=== PATIENT | male | born 1975 | race Caucasian/White ===

== ENCOUNTER → 2021-06-07 | Day surgery (SDC) | payer OTHER ==
[~2021-06-07] MED LIST: ACETAMINOPHEN 500 MG TABLET PO ONE; DEXAMETHASONE SOD PHOS 4 MG/ML VIAL. ONE; EPINEPHrine 30 MG/30 ML VIAL NS ONE; EPINEPHrine 30 MG/30 ML VIAL ONE; GELATIN SPONGE SIZE 12-7MM SPONGE. ONE; GELATIN SPONGE SIZE 12-7MM SPONGE. TP ONE; GLYCOPYRROLATE 1 MG/5 ML VIAL. ONE; IPRATRPIUM/ALBUTEROL 0.5/2.5MG 3 ML NEBU. NEB PRN; IV RINGERS SOLUTION,LACTATED 1,000 ML IV SCH; KETOROLAC 30 MG/ML VIAL. ONE; LIDOCAINE 1% PF 30 ML VIAL. INJ ONE; LIDOCAINE 1%/EPI 1:100,000 20 ML VIAL. ONE; LIDOCAINE 2% PF 5 ML VIAL. ONE; MIDAZOLAM HCL PF 2 MG/2 ML VIAL. IV ONE; MIDAZOLAM HCL PF 2 MG/2 ML VIAL. ONE; NEOMY/BACITR/POLYMYXIN OINT PACKET. TP ONE; NEOSTIGMINE 10 MG/10 ML VIAL. ONE; ONDANSETRON PF 4 MG/2 ML VIAL. IV PRN; ONDANSETRON PF 4 MG/2 ML VIAL. ONE; OXYMETAZOLINE 0.05% NASAL SPRAY 30ML BOTTLE. NS ONE; PROPOFOL 10,000 MCG/ML (20ML) VIAL IV ONE; ROCURONIUM 50 MG/5 ML VIAL. ONE; SCOPOLAMINE 1.5MG PATCH. TD ONE; SEVOFLURANE 61 TO 120 MINUTES. IH ONE; ceFAZolin SODIUM 2 GM in IV DEXTROSE 5% 50 ML IV ONE
[2021-06-07 11:06] VITALS: BP 140/90
--- NOTE | 2021-06-07 23:51 | OP ---
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 POSTOPERATIVE DIAGNOSES: Nasal septal deviation with inferior nasal turbinate hypertrophy and include a nasal polyp in the right middle meatus. PROCEDURE PERFORMED: A nasal septoplasty with radiofrequency reduction of the right inferior turbinate and an excision of a nasal polyp. INDICATIONS FOR PROCEDURE: Nasal obstruction. ESTIMATED BLOOD LOSS: Less than 10 mL. DESCRIPTION OF PROCEDURE: The patient was brought to the operating room and placed on the operating room table in a supine position and given a general anesthetic after his airway was secured in position. The table was rotated 90 degrees. His nose had been preoperatively decongested with Afrin nasal spray and it was examined and the septal deviation clearly observed and it had occurred into the left side of the nose occupying at least 70-80% of the nasal obstruction with crowding of the inferior left nasal turbinate. The right inferior turbinate responded to decongestion. Posteriorly on the right side, the septum concavity was noted with some displacement of the foot of the cartilaginous septum into the inferior airway column on the right. In the left side, there was marked deviation and irregularity of the septum. The inferior turbinate was noted to be crowded and a posterior spur formation identified at the cartilaginous bony junction. The septum was infiltrated with 1% lidocaine with epinephrine on both right and left side and then the inferior turbinate in the right side was infiltrated with saline. Some saline was placed into the left inferior turbinate to appreciate the amount of expansion that might have been existing prior to the application of the Afrin and it was estimated that this turbinate also would enlarge sufficiently enough to cause inferior airway obstruction. The turbinates were treated with radiofrequency energy using a Coblation unit. In the right side, the expanded turbinate mucosa with saline was entered with a radiofrequency wand and radiofrequency energy was applied, observing contraction of the soft tissue. A small application was applied to the anterior tip in the left side into the same fashion. A curvilinear incision was then made along the mucocutaneous border in the left side of the nose and dissection carried down between the mucoperichondrium on the left side for the full length of the deviated portion to the mid section of the bony cartilage. Mobilization of the septum was then accomplished by using a caudal elevator to separate the deformed septum from the premaxillary crest and irregular cartilage and bony tissue was then removed. Mobility of the septum was achieved. Position to the midline was not complete due to the twisted portion of the septum. Crossover incision was made and scoring of the cartilaginous septum was accomplished, which gave the septum more mobility and more midline position. The twisted portion of the premaxillary crest was then manicured using a small osteotome. Septum now was in midline position. Fragments of the posterior cartilaginous and anterior bony septum was removed with Blakesley forceps. With a midline position achieved, the septum was then sutured using a quilting type suture pattern to attach it to the elevated mucous membrane, a full length of the dissection. At the conclusion, careful examination of the nose on both sides unexpectedly revealed a medium sized polyp within the posterior middle meatus of the nasal passage. This was examined and found to be a small stalk attaching it to the inferior meatal wall, grasping it with a Blakesley forceps. It was removed and submitted for pathology. No significant bleeding resulted from that removal. The anterior of the nose was examined again and suctioned, removing all bloody remains and certain all tissue fragments that were remaining. It was then packed with Gelfoam. The nasopharynx had been suctioned and suturing had been completed closing the wound entry site. The patient was then recovered from his anesthesia and he was taken to the recovery room in stable condition. RAMSEY DR: Delvin TID: [id number]
--- NOTE | 2021-06-10 17:08 | PATHOLOGY ---
[facility] Accession Number: [id number] . 01 Material submitted: . nasal cavity - RIGHT POSTERIOR NASAL POLYP. Modifiers: right, posterior . 01 Clinical history: . NASAL INSUFFICIENCY SEPTOPLASTY,TURBINATES BILATERAL . 02 Diagnosis: Segments of respiratory mucosa and calcified bone, right posterior nasal polyp: - Inflammatory nasal polyp showing edema, chronic inflammation, and increased eosinophils. (JPM:pam; 06/10/2021) S 06/10/2021 1410 Local . 02 Electronically signed: . Mckinley West MD, Pathologist NPI- [id number] . 01 Gross description: . The specimen is received in formalin, labeled "Christian Hernandez, right posterior nasal polyp". Received are multiple segments of yellow-lynch translucent tissue admixed with coagulum measuring 2.1 x 1.4 x 0.3 cm in aggregate dimensions. The specimen is submitted entirely in cassette A1. (CAA; 06/09/2021) QA/QA 06/09/2021 1121 Local . 02 Pathologist provided ICD-10: J33.9, J31.0 . 02 CPT . 320941 Specimen Comment: A courtesy copy of this report has been sent to [phone], [phone] Specimen Comment: [id number] Specimen Comment: Report sent to / DR FABIAN Performed at: [facility] [address], [place] [id number] MD Jeffrey Osorio MD Phone: [phone] [facility]formed [facility]: [facility] [address] [place], [place] [id number] MD Mckinley West MD Phone: [phone]
== END | disposition home or self-care (01) ==
LOC: SURG 07:11
PROVIDERS: ATTEND Otolaryngology
DX: J34.2 Deviated nasal septum (principal); J34.3 Hypertrophy of nasal turbinates; J34.89 Other specified disorders of nose and nasal sinuses; Z72.89 Other problems related to lifestyle; Z79.899 Other long term (current) drug therapy
CPT/HCPCS: 30110; 30520; 30801; 88304; J0171; J0696; J1100; J1885; J2001; J2250; J2405; J2704; J2710; J3010; J3490; J7120